=== PATIENT | female | born 1995 | race African-American/Black ===

== ENCOUNTER 2017-01-19 11:48 | Emergency (ER) | payer BC ==
[~2017-01-19] VITALS: Ht 162.6 cm; Wt 120.0 kg
[2017-01-19 11:49] VITALS: BP 164/89; PULSE 91; RESP 14; TEMP 99; O2SAT 97
--- NOTE | 2017-01-19 12:50 | PD ---
HPI Chief Complaint: Abdominal Pain Time Seen by Provider: 12:19 Travel History International Travel<30 days: No Contact w/Intl Traveler<30days: No Traveled to known affect area: No History of Present Illness HPI 21-year-old female presents emergency department for evaluation of abdominal pain 3 days. Patient reports lower suprapubic abdominal discomfort with frequent urination. She describes the pain as "cramping". She also reports intermittent upper abdominal pain for the last month which is currently resolved. She denies fever, nausea, vomiting, diarrhea, vaginal discharge. LMP end of December. Patient is sexually active and not using any protection. She intermittently takes control. Symptom severity mild. No aggravating or alleviating factors. PFSH Past Medical History Medical History: Denies Significant Hx ?: Not LMP: 01/31/17 Social History Tobacco Use: No Allergies-Medications (Allergen,Severity, Reaction): Coded Allergies: No Known Allergies (Unverified , 01/19/17) Reported Meds & Prescriptions Reported Meds & Active Scripts Active No Active Prescriptions or Reported Medications Review of Systems General / Constitutional: No: Fever Cardiovascular: No: Chest Pain or Discomfort Respiratory: No: Shortness of Breath Gastrointestinal: Positive: Abdominal Pain Genitourinary: Positive: Frequency Skin: No Rash Physical Exam Narrative GENERAL: Well-nourished, well-developed patient. SKIN: Focused skin assessment warm/dry. HEAD: Normocephalic. EYES: No scleral icterus. No injection or drainage. NECK: Supple, trachea midline. No JVD or lymphadenopathy. CARDIOVASCULAR: Regular rate and rhythm without murmurs, gallops, or rubs. RESPIRATORY: Breath sounds equal bilaterally. No accessory muscle use. GASTROINTESTINAL: Abdomen soft,nondistended, mild suprapubic tenderness, bowel sounds positive. : External genitalia without lesions, small amount of whitish clear discharge within the vault, cervical os closed, cervical friability, no cervical motion tenderness, no adnexal mass or tenderness MUSCULOSKELETAL: No cyanosis, or edema. BACK: Nontender without obvious deformity. No CVA tenderness. Data Data Last Documented VS Vital Signs Date Time Temp Pulse Resp B/P (MAP) Pulse Ox O2 Delivery O2 Flow Rate FiO2 01/19/17 14:04 85 16 157/88 (111) 98 01/19/17 11:49 99.0 Orders Orders Gc And Chlamydia Pcr (01/19/17 12:29) Wet Prep Profile (01/19/17 12:29) Urinalysis - C+S If Indicated (01/19/17 12:29) Ed Urine Pregnancytest Poc (01/19/17 12:29) Azithromycin Powd Pack (Zithromax Powd P (01/19/17 13:30) Ceftriaxone Inj (Rocephin Inj) (01/19/17 13:30) Lidocaine 1% Inj (50 Ml) (Xylocaine 1% I (01/19/17 13:30) Ed Discharge Order (01/19/17 13:40) Labs Laboratory Tests Test 01/19/17 12:35 Urine Color YELLOW Urine Turbidity CLEAR Urine pH 6.0 Urine Specific [place] 1.024 Urine Protein NEG mg/dL Urine Glucose (UA) NEG mg/dL Urine Ketones NEG mg/dL Urine Occult Blood NEG Urine Nitrite NEG Urine Bilirubin NEG Urine Urobilinogen LESS THAN 2.0 MG/DL Urine Leukocyte Esterase NEG Urine RBC 1 /hpf Urine WBC 1 /hpf Urine Squamous Epithelial Cells 2 /hpf Urine Mucus FEW /lpf Microscopic Urinalysis Comment CULT NOT INDICATED Clue Cells (Wet Prep) NONE SEEN Vaginal Trichomonas (Wet Prep) NONE SEEN Vaginal Yeast (Wet Prep) NONE SEEN Chlamydia trachomatis DNA (PCR) NOT DETECTED Neisseria gonorrhoeae DNA (PCR) NOT DETECTED MDM Medical Decision Making Medical Screen Exam Complete: Yes Emergency Medical Condition: Yes Differential Diagnosis UTI, PID, vaginitis, cervicitis, ectopic, very unlikely appendicitis Narrative Course 21-year-old female with lower abdominal/suprapubic cramping and urinary frequency 3 days. Patient is well-appearing. On exam she has mild suprapubic tenderness. Her pelvic exam revealed mild cervical friability without cervical motion tenderness. UA: Negative for infection WET PREP: Negative for clue cells, negative for yeast, negative for Trichomonas URINE PREG: Negative GC/CHLAMYDIA: PENDING Diagnosis Primary Impression: Cervicitis Referrals: [facility] [employer] [facility] Additional Instructions: Use protection with each sexual encounter. Follow-up with your [facility]. Return to emergency department if he developed new or worsening symptoms. Scripts No Active Prescriptions or Reported Meds Disposition: 01 DISCHARGE HOME Condition: Stable Maria Del Rosario Gray Jan 19, 2017 12:50
[2017-01-19 13:09] LABS: BLOOD, URINE NEG (NEG); COMMENT (UR) CULT NOT INDICATED; CULTURE IF INDICATED CULT NOT INDICATED; GLUCOSE,URINE NEG (NEG); KETONE, URINE NEG (NEG); MUCUS URINE FEW /lpf (OCC); NITRITE,URINE NEG (NEG); SQUAMOUS EPITHELIAL CELL URINE 2 /hpf (0-5); URINE COLOR YELLOW (YELLW/STRAW)
[2017-01-19] MEDS ORDERED: AZITHROMYCIN PWD FOR SUSP 1 GM PACKET PO ONE (13:30)
[2017-01-19] MEDS ORDERED: LIDOCAINE HCL 1% 50 ML VIAL IM ONE (13:30)
[2017-01-19] MEDS ORDERED: cefTRIAXone 250 MG VIAL IM ONE (13:30)
[2017-01-19 14:04] VITALS: BP 157/88
[2017-01-19 15:06] LABS: CHLAMYDIA PCR NOT DETECTED (NOT DETECT); NEISSERIA PCR NOT DETECTED (NOT DETECT)
== END 2017-01-19 14:04 | disposition home or self-care (01) ==
LOC: NEPD 11:48
DX: N72 Inflammatory disease of cervix uteri (principal)
CPT/HCPCS: 81001; 84703; 87210; 87491; 87591; 96372; 99284; J0696